=== PATIENT | female | born 1955 | race Caucasian/White ===

== ENCOUNTER 2017-10-21 20:01 | Emergency (ER) | payer OTHER ==
[~2017-10-21] VITALS: Ht 160 cm; Wt 117.9 kg
[~2017-10-21 20:01] MED LIST: AMBIEN10 MG; AMOX1TAB12 PO; ASA81 MG PO; CATAFLAM50 MG; CIPRODEX OTIC7.5 ML OT; CLONAZEPAM0.5 MG; COZAAR100 MG; ENALAPRIL MALEA20 MG; GABAPENTIN100 MG PO; GLIPIZIDE10 MG PO; INTESTINEX680 MG PO; JANUVIA50 MG; LEVAQUIN500 MG PO; MECLIZINE HCL25 MG PO; METOPROLOL TART50 MG; URIN D.S. TABLE1 TAB PO; VASOTEC20 MG PO; VERAPAMIL HCL240 M1 PO
[2017-10-21] MEDS ORDERED: VITAMIN E & D B52 ML (20:24)
[2017-10-21] MEDS ORDERED: VERAPAMIL ER240 MG (20:24)
[2017-10-21] MEDS ORDERED: OMEPRAZOLE40 MG (20:25)
[2017-10-21] MEDS ORDERED: NEURONTIN300 MG (20:25)
[2017-10-21] MEDS ORDERED: HYDRALAZINE HCL50 MG (20:26)
== END 2017-10-21 23:57 | disposition home or self-care (01) ==
LOC: ER 20:01 → CPU-OBS 21:03 → ER 21:03 → CPU-OBS 23:57 → ER 10-22 00:01
DX: R07.89 Other chest pain (principal); F41.9 Anxiety disorder, unspecified; M62.838 Other muscle spasm

== ENCOUNTER 2018-02-22 12:18 | Outpatient (CLI) | payer OTHER ==
[~2018-02-22 12:18] MED LIST changes: +HYDRALAZINE HCL50 MG; +NEURONTIN300 MG; +OMEPRAZOLE40 MG; +VERAPAMIL ER240 MG; +VITAMIN E & D B52 ML
== END 2018-02-22 12:20 | disposition home or self-care (01) ==
LOC: LAB 12:18
DX: G61.89 Other inflammatory polyneuropathies (principal); R26.2 Difficulty in walking, not elsewhere classified; G89.4 Chronic pain syndrome; I10 Essential (primary) hypertension; E78.4 Other hyperlipidemia; I69.10 Unspecified sequelae of nontraumatic intracerebral hemorrhage; E66.8 Other obesity; K29.50 Unspecified chronic gastritis without bleeding; I87.2 Venous insufficiency (chronic) (peripheral); M54.5 Low back pain; G47.00 Insomnia, unspecified; E11.40 Type 2 diabetes mellitus with diabetic neuropathy, unspecified; M25.50 Pain in unspecified joint; R19.5 Other fecal abnormalities; I63.8 Other cerebral infarction; E66.01 Morbid (severe) obesity due to excess calories

== ENCOUNTER → 2018-05-18 10:22 | Outpatient (CLI) | payer OTHER | END | disposition home or self-care (01) | LOC: LAB 10:22 | DX: R26.2 Difficulty in walking, not elsewhere classified (principal); G89.4 Chronic pain syndrome; I10 Essential (primary) hypertension; E78.4 Other hyperlipidemia; G61.89 Other inflammatory polyneuropathies; I69.10 Unspecified sequelae of nontraumatic intracerebral hemorrhage; E66.8 Other obesity; K29.50 Unspecified chronic gastritis without bleeding; I87.2 Venous insufficiency (chronic) (peripheral); M54.5 Low back pain; E11.40 Type 2 diabetes mellitus with diabetic neuropathy, unspecified; M25.50 Pain in unspecified joint; R19.5 Other fecal abnormalities; I63.8 Other cerebral infarction; E66.01 Morbid (severe) obesity due to excess calories; G47.09 Other insomnia ==

== ENCOUNTER 2018-05-18 11:18 | Outpatient (CLI) | payer OTHER | END 2018-05-18 11:26 | disposition home or self-care (01) | LOC: NUCLEAR 11:18 | DX: M81.0 Age-related osteoporosis without current pathological fracture (principal); G61.89 Other inflammatory polyneuropathies; R26.2 Difficulty in walking, not elsewhere classified; G89.4 Chronic pain syndrome; I10 Essential (primary) hypertension; I69.10 Unspecified sequelae of nontraumatic intracerebral hemorrhage; E78.5 Hyperlipidemia, unspecified; E66.8 Other obesity; K29.50 Unspecified chronic gastritis without bleeding; I87.2 Venous insufficiency (chronic) (peripheral); M54.5 Low back pain; G47.09 Other insomnia; E11.40 Type 2 diabetes mellitus with diabetic neuropathy, unspecified; M25.50 Pain in unspecified joint; R19.5 Other fecal abnormalities; I63.8 Other cerebral infarction; E66.01 Morbid (severe) obesity due to excess calories; Z13.820 Encounter for screening for osteoporosis ==

== ENCOUNTER 2018-05-18 12:32 | Outpatient (CLI) | payer OTHER | END 2018-05-18 12:39 | disposition home or self-care (01) | LOC: MAMO-SONO 12:32 | DX: G47.00 Insomnia, unspecified (principal); Z12.31 Encounter for screening mammogram for malignant neoplasm of breast; Z87.898 Personal history of other specified conditions; G61.89 Other inflammatory polyneuropathies; R26.2 Difficulty in walking, not elsewhere classified; G89.4 Chronic pain syndrome; I10 Essential (primary) hypertension; E78.4 Other hyperlipidemia; I69.10 Unspecified sequelae of nontraumatic intracerebral hemorrhage; K29.50 Unspecified chronic gastritis without bleeding; I87.2 Venous insufficiency (chronic) (peripheral); M54.5 Low back pain; E11.40 Type 2 diabetes mellitus with diabetic neuropathy, unspecified; M25.50 Pain in unspecified joint; R19.5 Other fecal abnormalities; I63.8 Other cerebral infarction; E66.01 Morbid (severe) obesity due to excess calories; G47.09 Other insomnia; E66.8 Other obesity ==

== ENCOUNTER 2019-01-21 08:56 | Emergency (ER) | payer OTHER ==
[~2019-01-21] VITALS: Ht 160 cm; Wt 136.1 kg
== END 2019-01-21 11:52 | disposition home or self-care (01) ==
LOC: ER 08:56
DX: E11.42 Type 2 diabetes mellitus with diabetic polyneuropathy (principal); M79.604 Pain in right leg

== ENCOUNTER 2019-04-09 11:29 | Outpatient (CLI) | payer OTHER | END 2019-04-09 15:00 | disposition home or self-care (01) | LOC: LAB 11:29 | DX: D64.89 Other specified anemias (principal); R10.84 Generalized abdominal pain; E03.8 Other specified hypothyroidism; E78.49 Other hyperlipidemia; R80.8 Other proteinuria ==

== ENCOUNTER 2019-04-18 07:25 | Outpatient (CLI) | payer OTHER | END 2019-04-18 07:28 | disposition home or self-care (01) | LOC: NUCLEAR 07:25 | DX: I20.9 Angina pectoris, unspecified (principal) | CPT/HCPCS: 78452; 93017; A9500; J0153 ==

== ENCOUNTER 2019-10-26 10:23 | Outpatient (CLI) | payer OTHER | END 2019-10-26 10:30 | disposition home or self-care (01) | LOC: LAB 10:23 | DX: R26.2 Difficulty in walking, not elsewhere classified (principal); R07.1 Chest pain on breathing; M85.89 Other specified disorders of bone density and structure, multiple sites; M54.5 Low back pain; K57.30 Diverticulosis of large intestine without perforation or abscess without bleeding; K29.50 Unspecified chronic gastritis without bleeding; I87.2 Venous insufficiency (chronic) (peripheral); I69.10 Unspecified sequelae of nontraumatic intracerebral hemorrhage; G47.00 Insomnia, unspecified; E78.49 Other hyperlipidemia; E66.01 Morbid (severe) obesity due to excess calories; E11.40 Type 2 diabetes mellitus with diabetic neuropathy, unspecified; I13.10 Hypertensive heart and chronic kidney disease without heart failure, with stage 1 through stage 4 chronic kidney disease, or unspecified chronic kidney disease; G61.89 Other inflammatory polyneuropathies; F33.1 Major depressive disorder, recurrent, moderate ==

== ENCOUNTER 2021-08-06 20:04 | Emergency (ER) | payer OTHER ==
[~2021-08-06] VITALS: Ht 160 cm; Wt 117.9 kg
[2021-08-06] MEDS ORDERED: TORADOL60 MG IM (23:18)
[2021-08-06] MEDS ORDERED: ORPHENADRI30 MG/1 M1 IJ (23:18)
== END 2021-08-07 00:16 | disposition home or self-care (01) ==
LOC: ER 20:04
DX: S70.02XA Contusion of left hip, initial encounter (principal); S80.02XA Contusion of left knee, initial encounter; W18.39XA Other fall on same level, initial encounter; Y93.89 Activity, other specified; Y92.098 Other place in other non-institutional residence as the place of occurrence of the external cause; Y99.8 Other external cause status

== ENCOUNTER 2021-09-01 10:57 | Emergency (ER) | payer OTHER ==
[~2021-09-01] VITALS: Ht 160 cm; Wt 120.7 kg
[~2021-09-01 10:57] MED LIST changes: +ORPHENADRI30 MG/1 M1 IJ; +TORADOL60 MG IM
== END 2021-09-01 15:27 | disposition home or self-care (01) ==
LOC: ER 10:57
DX: I87.2 Venous insufficiency (chronic) (peripheral) (principal); M79.605 Pain in left leg

== ENCOUNTER 2022-04-18 13:58 | Emergency (ER) | payer OTHER ==
[~2022-04-18] VITALS: Ht 160 cm; Wt 120.2 kg
== END 2022-04-18 17:22 | disposition home or self-care (01) ==
LOC: ER 13:58
DX: J18.9 Pneumonia, unspecified organism (principal); R06.02 Shortness of breath; I10 Essential (primary) hypertension; Z20.822 Contact with and (suspected) exposure to COVID-19; Z91.013 Allergy to seafood

== ENCOUNTER 2022-11-06 12:51 | Emergency (ER) | payer OTHER ==
[~2022-11-06] VITALS: Ht 160 cm; Wt 117.9 kg
[2022-11-06] MEDS ORDERED: GABAPENTIN600 MG (12:58)
[2022-11-06] MEDS ORDERED: BUDESONIDE0.5 MG/2 M IH (16:30)
[2022-11-06] MEDS ORDERED: ALBUTEROL2.5 MG/3 M IH (16:30)
== END 2022-11-06 16:34 | disposition home or self-care (01) ==
LOC: ER 12:51
DX: J45.909 Unspecified asthma, uncomplicated (principal); I10 Essential (primary) hypertension; M94.0 Chondrocostal junction syndrome [Tietze]; E11.9 Type 2 diabetes mellitus without complications; Z91.013 Allergy to seafood

== ENCOUNTER 2023-01-22 20:29 | Emergency (ER) | payer OTHER ==
[~2023-01-22] VITALS: Ht 157.5 cm; Wt 127.0 kg
[~2023-01-22 20:29] MED LIST changes: +ALBUTEROL2.5 MG/3 M IH; +BUDESONIDE0.5 MG/2 M IH; +GABAPENTIN600 MG
== END 2023-01-23 00:37 | disposition home or self-care (01) ==
LOC: ER 20:29
DX: M54.32 Sciatica, left side (principal); I10 Essential (primary) hypertension; Z91.013 Allergy to seafood

== ENCOUNTER 2024-08-06 20:31 | Inpatient (IN) | payer OTHER ==
[~2024-08-06] VITALS: Ht 160 cm; Wt 117.9 kg
--- NOTE | 2024-08-06 20:41 | NUR ---
SE RECIBE PTE ALERTA Y ORIENTADA EN AMBULANCIA LA CUAL REFIERE VENIR POR DIFICULTAD RESPIRATORIA, TOS CON SECRECIONES Y DOLOR DE PECHO DESDE HACE VARIOS KEYS. SE MIDEN S/V A PTE Y SE REALIZA EKG. PTE SE UBICA EN UNIDAD DE K8.
[2024-08-06] MEDS ORDERED: FAMOTIDINE/PF 20 MG in 0.9 % SODIUM CHLORIDE 8 ML IV PUSH STA (20:46)
[2024-08-06] MEDS ORDERED: KETOROLAC TROMETHAMINE 60 MG VIAL IM ONE (21:00)
[2024-08-06] MEDS ORDERED: hydrALAZINE HCL 20 MG VIAL IV ONE (21:00)
[2024-08-06] MEDS ORDERED: LABETALOL HCL 100 MG/20 ML ML IV PUSH ONE (21:00)
--- NOTE | 2024-08-06 21:14 | NUR ---
SE EDUCA A PTE SOBRE TX MEDICO, SE ANANTH MUESTRAS DE LABORATORIO UTILIZANDO MEDIDAS ASEPTICAS. SE COLOCA H/L KAYLI DE EDEMA. SE ADMINISTRAN MEDICAMENTOS LOS CUALES TOLERA. SE NOTIFICA ESTUDIOS DE RX Y CT PENDIENTES A REALIZAR.
[2024-08-06 21:33] LABS: HEMATOCRIT 46.3 % (36.0-45.00); HEMOGLOBIN 15.2 g/dL (12.0-15.00); MEAN CELL VOLUME 90.8 fL (80.00-100.00); MEAN CORPUSCULAR HEMOGLOBIN 29.7 pg (27.00-32.0); MEAN CORPUSCULAR HGB CONC 32.8 g/dl (32.0-36.0); PLATELET COUNT 324 K/uL (150-450)
[2024-08-06] MEDS ORDERED: PIPERACILLIN/TAZOBACTAM SODIUM 3.375 GM in 0.9 % SODIUM CHLORIDE 100 ML IV SCH (21:54)
[2024-08-06 22:01] LABS: ALBUMIN 2.9 gm/dL (3.4-5.0); BILIRUBIN TOTAL 0.6 mg/dL (0.3-1.2); CALCIUM 9.3 mg/dL (8.5-10.1); CREATININE SERUM 0.87 mg/dL (0.55-1.02); GFR 64.75; GLOBULINA 3.7 G/DL (2.4-3.5); POTASSIUM 4.82 mEq/L (3.5-5.1); TOTAL PROTEIN 6.6 gm/dL (6.4-8.2)
[2024-08-06 22:07] LABS: ALT/SGPT 11 U/L (12-78); AST/SGOT 19 U/L (15-37); LDH 231 U/L (84-246); PHOSPHOKINASE CREATININE 65 U/L (26-192)
[2024-08-06 22:14] LABS: BILIRUBIN,CONJUGATED 0.13 mg/dL (0.0-0.2); BILIRUBIN,UNCONJUGATED 0.47 mg/dL (0.0-0.6)
--- NOTE | 2024-08-06 23:08 | NUR ---
SE RECIBE PTE DEL TURNO ANTERIOR ALERTA Y ORIENTADA X3, EN CAMA CON BARANDAS ELEVADAS, CONECTADA A MONITOR CARDIACO Y OXIMETRIA PULSO CONTINUA. PENDIENTE A RESULTADOS DE LABORATORIO. SE ANANTH SV Y SE DOCUMENTA.
[2024-08-06] MEDS ORDERED: LEVALBUTEROL HCL 1.25 MG/3 ML SOLUTION IH SCH (23:24)
[2024-08-06] MEDS ORDERED: GABAPENTIN 600 MG TABLET PO SCH (23:26)
[2024-08-06 23:28] LABS: URINE APPEARANCE Clear; URINE BILIRRUBIN Negative (NEGATIVE); URINE BLOOD Negative; URINE COLOR Yellow; URINE GLUCOSE Negative (NEGATIVE); URINE KETONE Negative (NEGATIVE); URINE LEUKOCYTE Negative; URINE NITRATE Negative; URINE UROBILINOGEN 0.2 E.U./dl
[2024-08-06] MEDS ORDERED: DEXTROSE 50 % IN WATER 0.5 G/ML DISP.SYRIN IV PRN (23:30)
[2024-08-06] MEDS ORDERED: 0.9 % SODIUM CHLORIDE 1,000 ML IV SCH (23:30)
[2024-08-06] MEDS ORDERED: MORPHINE SULFATE 4 MG/ML CARTRIDGE IV PRN (23:30)
[2024-08-06] MEDS ORDERED: INSULIN LISPRO 1,000 UNIT/10 ML UNITS SUBCUTANEO PRN (23:30)
[2024-08-06 23:36] LABS: URINE BACTERIA 62.9 uL (0.0-1933); URINE EPITHELIAL CELLS 23.1 uL (0.0-38.8); URINE RBC 16.4 uL (0.0-20.8); URINE WBC 15.4 uL (0.0-23.2)
[2024-08-07 00:37] VITALS: BP 145/86
[2024-08-07] MEDS ORDERED: GUAIFEN/DEXTROMETHORPHAN/PE 10 ML BLIST.PACK PO SCH (01:00)
[2024-08-07] MEDS ORDERED: IPRATROPIUM BROMIDE 0.5 MG/2.5 ML AMPUL.NEB IH SCH (01:00)
[2024-08-07 01:50] LABS: URINE CAST 1.06 uL (0.0-1.40); URINE PROTEIN 100 (NEGATIVE)
[2024-08-07 04:09] LABS: INR 0.98; PARTIAL THROMBOPLASTIN TIME 24.3 SECONDS (22.0-34.0); PROTHROMBIN TIME 10.7 SECONDS (9.0-11.5)
[2024-08-07 04:09] LABS: ABG PH 7.387 (7.35-7.45); ABG PO2 107.3 mmHg (80-100); ABG pCO2 49.2 mmHg (35-45); BICARBONATE 28.9 mmol/l (23-25); SaO2 98.1 %; Tco2 30.4 mmol/l; allen test SATISFACTORY; o2 32 %; puncture site RADIAL RIGHT
[2024-08-07 07:36] VITALS: BP 109/74; O2SAT 97
[2024-08-07] MEDS ORDERED: ENOXAPARIN SODIUM 40 MG/0.4 ML SYRINGE SUBCUTANEO SCH (09:00)
[2024-08-07] MEDS ORDERED: VERAPAMIL HCL 80 MG TABLET PO SCH (09:00)
[2024-08-07] MEDS ORDERED: LOSARTAN POTASSIUM 100 MG TABLET PO SCH (09:00)
[2024-08-07 22:22] VITALS: BP 160/90
[2024-08-08 02:53] VITALS: BP 132/87; O2SAT 97
[2024-08-08] MEDS ORDERED: LEVALBUTEROL HCL 1.25 MG/3 ML SOLUTION IH SCH (09:00)
[2024-08-08 09:15] VITALS: BP 150/82; O2SAT 98
[2024-08-08 17:59] VITALS: BP 160/82; O2SAT 97
[2024-08-09 02:59] VITALS: BP 152/77; O2SAT 96
[2024-08-09 06:27] LABS: HEMOGLOBIN 12.4 g/dL (12.0-15.00); MEAN CELL VOLUME 90.8 fL (80.00-100.00); MEAN CORPUSCULAR HEMOGLOBIN 30.6 pg (27.00-32.0); MEAN CORPUSCULAR HGB CONC 33.7 g/dl (32.0-36.0); PLATELET COUNT 286 K/uL (150-450); RED BLOOD COUNT 4.07 M/uL (4.00-6.00); RED CELL DISTRIBUTION WIDTH 16.7 % (11.5-14.5)
[2024-08-09 08:58] VITALS: BP 140/80
[2024-08-09] MEDS ORDERED: hydrALAZINE HCL 20 MG VIAL IV PRN (11:00)
[2024-08-09] MEDS ORDERED: SODIUM CHLORIDE 0.45 % 1,000 ML IV SCH (11:00)
[2024-08-09] MEDS ORDERED: BUDESONIDE 0.5 MG/2 ML AMPUL.NEB IH NR (12:15)
[2024-08-09] MEDS ORDERED: IPRATROPIUM/ALBUTEROL SULFATE 3 ML AMPUL.NEB IH SCH (13:00)
[2024-08-09 16:02] LABS: ALBUMIN 2.5 gm/dL (3.4-5.0); BILIRUBIN TOTAL 1.09 mg/dL (0.3-1.2); CALCIUM 9.2 mg/dL (8.5-10.1); CREATININE SERUM 1.17 mg/dL (0.55-1.02); GLOBULINA 3.4 G/DL (2.4-3.5); MAGNESIUM 2.1 mg/dL (1.8-2.4); PHOSPHOROUS 2.6 mg/dL (2.5-4.9); POTASSIUM 4.13 mEq/L (3.5-5.1); TOTAL PROTEIN 5.9 gm/dL (6.4-8.2)
[2024-08-09 16:04] LABS: C-REACTIVE PROTEIN 4.67 MG/DL (0.00-0.29)
[2024-08-09 18:16] VITALS: BP 200/100; O2SAT 97
[2024-08-09] MEDS ORDERED: BUDESONIDE 0.5 MG/2 ML AMPUL.NEB IH SCH (21:00)
[2024-08-10 08:54] VITALS: BP 155/90; O2SAT 97
[2024-08-10] MEDS ORDERED: DEXTROSE 5 % IN WATER 1,000 ML IV SCH (09:00)
[2024-08-10] MEDS ORDERED: MULTIVIT INFUSN,ADULT 4,VIT K 10 ML VIAL IV SCH (09:00)
[2024-08-10] MEDS ORDERED: Duloxetine HCl 60 MG CAPSULE.DR PO SCH (09:00)
[2024-08-10 16:52] VITALS: BP 159/96; O2SAT 98
[2024-08-11 02:44] VITALS: BP 160/98; O2SAT 96
[2024-08-11 07:33] LABS: HEMATOCRIT 36.2 % (36.0-45.00); MEAN CELL VOLUME 90.9 fL (80.00-100.00); PLATELET COUNT 303 K/uL (150-450); RED BLOOD COUNT 3.99 M/uL (4.00-6.00); RED CELL DISTRIBUTION WIDTH 16.9 % (11.5-14.5)
[2024-08-11 08:35] LABS: ALBUMIN 2.5 gm/dL (3.4-5.0); BILIRUBIN TOTAL 0.73 mg/dL (0.3-1.2); C-REACTIVE PROTEIN 1.44 MG/DL (0.00-0.29); CALCIUM 8.7 mg/dL (8.5-10.1); CREATININE SERUM 1.09 mg/dL (0.55-1.02); GFR 49.92; GLOBULINA 3.2 G/DL (2.4-3.5); MAGNESIUM 1.9 mg/dL (1.8-2.4); PHOSPHOROUS 2.8 mg/dL (2.5-4.9); POTASSIUM 3.75 mEq/L (3.5-5.1); TOTAL PROTEIN 5.7 gm/dL (6.4-8.2)
[2024-08-11 10:02] VITALS: BP 164/90; O2SAT 97
[2024-08-11 19:34] VITALS: BP 174/97
[2024-08-12 01:49] VITALS: BP 115/60; O2SAT 97
[2024-08-12 07:45] LABS: ALBUMIN 2.5 gm/dL (3.4-5.0); BILIRUBIN TOTAL 0.76 mg/dL (0.3-1.2); CALCIUM 8.8 mg/dL (8.5-10.1); CREATININE SERUM 1.32 mg/dL (0.55-1.02); GFR 40.02; GLOBULINA 3.4 G/DL (2.4-3.5); POTASSIUM 3.69 mEq/L (3.5-5.1); TOTAL PROTEIN 5.9 gm/dL (6.4-8.2)
[2024-08-12 08:00] VITALS: BP 141/76; O2SAT 98
[2024-08-12 19:10] VITALS: BP 128/90
== END 2024-08-12 21:29 | disposition home or self-care (01) | DRG 872 ==
LOC: ER 20:31 → SEC-K 23:28 → MEDJ 08-07 15:15
PROVIDERS: General Practice; Internal Medicine; Internal Medicine Infectious Disease; ADMIT Internal Medicine; ATTEND Internal Medicine
PROC: BW21ZZZ Computerized Tomography (CT Scan) of Abdomen and Pelvis (ICD-10-PCS; principal; 2024-08-06)
PROC: BB24ZZZ Computerized Tomography (CT Scan) of Bilateral Lungs (ICD-10-PCS; 2024-08-06)
PROC: 3E0F7GC Introduction of Other Therapeutic Substance into Respiratory Tract, Via Natural or Artificial Opening (ICD-10-PCS; 2024-08-07)
DX: A41.9 Sepsis, unspecified organism (principal); K57.92 Diverticulitis of intestine, part unspecified, without perforation or abscess without bleeding; J44.1 Chronic obstructive pulmonary disease with (acute) exacerbation; E87.0 Hyperosmolality and hypernatremia; N17.9 Acute kidney failure, unspecified; J20.9 Acute bronchitis, unspecified; I10 Essential (primary) hypertension; E11.9 Type 2 diabetes mellitus without complications; Z79.4 Long term (current) use of insulin; E03.9 Hypothyroidism, unspecified; E86.0 Dehydration; E66.01 Morbid (severe) obesity due to excess calories; Z74.01 Bed confinement status; M54.30 Sciatica, unspecified side